=== PATIENT | male | born 1965 | race Caucasian/White ===

== ENCOUNTER → 2016-08-22 | Outpatient (CLI) | payer OTHER ==
[~2016-08-22] VITALS: Ht 177.8 cm; Wt 131.5 kg
[~2016-08-22] MED LIST: ASPIR-TRIN325 M1 PO; ESCITALOPRAM OX10 MG PO; LEVOTHYROXINE PO; PROVENTIL HFA6.7 GM IH; SYNTHROID150 MCG PO; SYNTHROID175 MCG PO; ZANTAC150 MG PO
== END | disposition home or self-care (01) ==
LOC: AMB 08:20
DX: Z12.11 Encounter for screening for malignant neoplasm of colon (principal); D12.0 Benign neoplasm of cecum; K63.5 Polyp of colon; K57.30 Diverticulosis of large intestine without perforation or abscess without bleeding; J45.909 Unspecified asthma, uncomplicated; N40.0 Benign prostatic hyperplasia without lower urinary tract symptoms; E05.00 Thyrotoxicosis with diffuse goiter without thyrotoxic crisis or storm; E89.0 Postprocedural hypothyroidism; E78.5 Hyperlipidemia, unspecified; E66.01 Morbid (severe) obesity due to excess calories; Z68.41 Body mass index [BMI] 40.0-44.9, adult; G47.33 Obstructive sleep apnea (adult) (pediatric); F17.220 Nicotine dependence, chewing tobacco, uncomplicated; Z82.0 Family history of epilepsy and other diseases of the nervous system; Z83.71 Family history of colonic polyps; Z83.49 Family history of other endocrine, nutritional and metabolic diseases
CPT/HCPCS: 88305; 93005; J2250; J3010